=== PATIENT | male | born 1990 | race Caucasian/White ===

== ENCOUNTER 2016-09-23 00:24 | Emergency (ER) | payer OTHER ==
[~2016-09-23] VITALS: Ht 170.2 cm; Wt 72.5 kg
[2016-09-23 00:32] VITALS: Ht 170.2 cm; Wt 72.5 kg
[2016-09-23] MEDS ORDERED: OSLT75C PO (05:06)
[2016-09-23] MEDS ORDERED: UDROBDM PO (05:06)
[2016-09-23] MEDS ORDERED: IBUP800T25 PO (05:06)
[2016-09-23] MEDS ORDERED: FLUT9.9S NASAL (05:07)
[2016-09-23] MEDS: IBUPROFEN 800 MG TAB PO ONE ×2 (05:09→05:15)
--- NOTE | 2016-09-23 05:12 | ERD ---
ER Documentation Chief Complaint Date/Time DATE: 09/23/16 TIME: 05:08 Chief Complaint pt reports feeling sick for 9 days HPI This a 26-year-old male who presents to the emergency department today complaining of fevers, body aches, cough, sore throat for the past week. 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 States he was in care home for 45 days and recently got out. States he has not taken any medication for the pain. States he is homeless. ROS All systems reviewed and are negative except as per history of present illness. Medications Home Meds Active Scripts Fluticasone Propionate (Flonase Allergy Relief) 9.9 Ml [place].susp, 1 SPRAY NASAL BID, #1 BOTTLE TO EACH NOSTRIL Prov:ROLF DIETZ PA-C 09/23/16 Ibuprofen* (Motrin*) 800 Mg Tab, 800 MG PO Q6, #30 TAB Prov:ROLF DIETZ PA-C 09/23/16 Guaifenesin-Dextromethorphan* (Robitussin* DM) 100MG/10MG/5ML Syrup, 10 ML PO Q4H Y for COUGH for 5 Days, ML Prov:ROLF DIETZ PA-C 09/23/16 Oseltamivir Phosphate* (Tamiflu*) 75 Mg Capsule, 75 MG PO BID for 5 Days, CAP Prov:ROLF DIETZ PA-C 09/23/16 Allergies Allergies: Coded Allergies: acetaminophen (Verified Allergy, Unknown, 09/23/16) PT has HEP C PMhx/Soc Hx Miscellaneous Medical Probl: Yes (Hep C) Hx Alcohol Use: Yes (socially) Hx Substance Use: Yes (hx I drug use) Hx Tobacco Use: Yes Smoking Status: Current every day smoker Physical Exam Vitals Vital Signs Date Time Temp Pulse Resp B/P Pulse Ox O2 Delivery O2 Flow Rate FiO2 09/23/16 00:32 96.1 101 18 124/67 97 Physical Exam Const: No acute distress Head: Atraumatic Eyes: Normal Conjunctiva ENT: Ears TMs normal. Nose no drainage. Throat no erythema no exudate. Neck: Full range of motion..~ No meningismus. Resp: Clear to auscultation bilaterally. No absent breath sounds. No wheezing. Cardio: Regular rate and rhythm, no murmurs Abd: Soft, non tender, non distended. Normal bowel sounds Skin: No petechiae or rashes. Neur: Awake and alert Psych: Normal Mood and Affect Results 24 hrs Current Medications Medications (Trade) Dose Ordered Sig/Dontae Route PRN Reason Start Time Stop Time Status Last Admin Dose Admin Ibuprofen (Motrin) 800 mg ONCE ONCE PO 09/23/16 05:00 09/23/16 05:01 DC Procedures/MDM This is a 26-year-old male who presents to the emergency department today for influenza-like symptoms for the past week. Patient is here with his girlfriend with the exact same complaints. Patient has recently been detoxing from meth heroin and benzos. He is very mildly tachycardic however he is afebrile and otherwise well-appearing here in the emergency department. I do not feel the patient requires further laboratory workup or imaging at this time. I have low suspicion for strep pharyngitis, peritonsillar abscess, retropharyngeal abscess, otitis media, PNA, sinusitis, abscess, meningitis, sepsis, or other acute infectious bacterial process. No evidence of withdrawal symptoms at this time. Patient was given Motrin here in the emergency department. I will give him a prescription for Tamiflu, Robitussin, Motrin, Flonase to help treat his symptoms. . At this time the patient is stable for discharge and outpatient management. They should follow up with their PCP in the next 1-2. They may return to the emergency department sooner if symptoms persist or worsen. Patient understood and agreed with the plan. I was notified prior to discharge by the nursing staff that patient did not want Motrin for pain. Departure Diagnosis: Primary Impression: Influenza-like symptoms Condition: Fair Patient Instructions: Influenza (Adult) Referrals: COMMUNITY CLINICS YOU HAVE RECEIVED A MEDICAL SCREENING EXAM AND THE RESULTS INDICATE THAT YOU DO NOT HAVE A CONDITION THAT REQUIRES URGENT TREATMENT IN THE EMERGENCY DEPARTMENT. FURTHER EVALUATION AND TREATMENT OF YOUR CONDITION CAN WAIT UNTIL YOU ARE SEEN IN YOUR DOCTORS OFFICE WITHIN THE NEXT 1-2 DAYS. IT IS YOUR RESPONSIBILITY TO MAKE AN APPOINTMENT FOR FOLOW-UP CARE. IF YOU HAVE A PRIMARY DOCTOR --you should call your primary doctor and schedule an appointment IF YOU DO NOT HAVE A PRIMARY DOCTOR YOU CAN CALL OUR PHYSICIAN REFERRAL HOTLINE AT IF YOU CAN NOT AFFORD TO SEE A PHYSICIAN YOU CAN CHOSE FROM THE FOLLOWING COMMUNITY CLINICS [facility] [address] [facility] [address] [facility] [facility] [address] [facility] [address] [facility] [address] [facility]. [facility] [address] Additional Instructions: Call your primary care doctor TOMORROW for an appointment during the next 1-2 days.See the doctor sooner or return here if your condition worsens before your appointment time. Take Tamiflu for flu Take Robitussin for cough Take Flonase for nasal congestion Take Motrin for pain or fever body aches ROLF DIETZ PA-C Sep 23, 2016 05:11
[2016-09-23 07:19] VITALS: BP 125/85; PULSE 85; RESP 16; TEMP 99.1
== END 2016-09-23 07:21 | disposition home or self-care (01) ==
LOC: FTE 00:24
DX: R50.9 Fever, unspecified (principal); R05 Cough; J02.9 Acute pharyngitis, unspecified; R52 Pain, unspecified; F17.210 Nicotine dependence, cigarettes, uncomplicated
CPT/HCPCS: 99283